=== PATIENT | female | born 1980 | race Two or more races ===

== ENCOUNTER 2022-09-04 13:11 | Outpatient (CLI) | payer OTHER | END 2022-09-04 13:13 | disposition home or self-care (01) | LOC: NUCLEAR 13:11 | PROVIDERS: ATTEND Internal Medicine Sports Medicine | DX: C73 Malignant neoplasm of thyroid gland (principal); E89.0 Postprocedural hypothyroidism ==

== ENCOUNTER 2022-09-08 10:32 | Outpatient (CLI) | payer OTHER | END 2022-09-08 10:36 | disposition home or self-care (01) | LOC: NUCLEAR 10:32 | PROVIDERS: ATTEND Internal Medicine Sports Medicine | DX: C73 Malignant neoplasm of thyroid gland (principal); E89.0 Postprocedural hypothyroidism | CPT/HCPCS: 78015; A9531 ==

== ENCOUNTER → 2023-09-14 10:05 | Outpatient (CLI) | payer OTHER | END | disposition home or self-care (01) | LOC: NUCLEAR 10:05 | PROVIDERS: ATTEND Internal Medicine Sports Medicine | DX: C73 Malignant neoplasm of thyroid gland (principal); E89.0 Postprocedural hypothyroidism ==

== ENCOUNTER 2025-01-09 06:19 | Day surgery (SDC) | payer OTHER ==
[2025-01-07 09:58] LABS: BASO % 0.7 % (0.1-1.2); EOS # 0.08 (0.04-0.54); EOS % 1.4 % (0.7-7.0); HEMATOCRIT 31.4 % (34.1-44.9); HEMOGLOBIN 9.7 g/dL (11.2-15.7); LYMPH # 2.21 (1.18-3.74); LYMPH % 37.4 % (19.3-53.1); MEAN CORPUSCULAR HEMOGLOBIN 23.3 pg (25.6-32.2); MONO # 0.39 (0.24-0.82); MONO % 6.6 % (4.7-12.5); NEUT # 3.16 (1.56-6.13); NEUT % 53.4 % (34.0-71.1); PLATELET COUNT 277 K/uL (163-369); RED BLOOD COUNT 4.17 M/uL (3.93-5.22); RED CELL DISTRIBUTION WIDTH 15.5 % (11.6-14.4)
[2025-01-07 09:59] LABS: PH,URINE 5.5 (5.0-8.0); URINE APPEARANCE Clear; URINE BACTERIA 298.6 uL (0.0-1933); URINE BILIRRUBIN Negative (NEGATIVE); URINE BLOOD Negative; URINE COLOR Yellow; URINE EPITHELIAL CELLS 14.8 uL (0.0-38.8); URINE GLUCOSE Negative (NEGATIVE); URINE KETONE Negative (NEGATIVE); URINE LEUKOCYTE Negative; URINE NITRATE Negative; URINE PROTEIN Negative (NEGATIVE); URINE UROBILINOGEN 0.2 E.U./dl; URINE WBC 7.9 uL (0.0-23.2)
[2025-01-07 10:28] LABS: PARTIAL THROMBOPLASTIN TIME 24.4 SECONDS (22.0-34.0); PROTHROMBIN TIME 10.9 SECONDS (9.0-11.5)
[2025-01-07 10:46] LABS: ALBUMIN 3.5 gm/dL (3.4-5.0); BILIRUBIN TOTAL 0.3 mg/dL (0.3-1.2); CALCIUM 8.8 mg/dL (8.5-10.1); CREATININE SERUM 0.69 mg/dL (0.55-1.02); GFR 91.59; GLOBULINA 3.8 G/DL (2.4-3.5); POTASSIUM 4.54 mEq/L (3.5-5.1); TOTAL PROTEIN 7.3 gm/dL (6.4-8.2)
[2025-01-07 13:35] VITALS: BP 120/79
[~2025-01-09] VITALS: Ht 160 cm; Wt 76.7 kg
[~2025-01-09 06:19] MED LIST: SYNTHROID125 MCG PO
[2025-01-09] MEDS ORDERED: CEFAZOLIN SODIUM 1,000 MG VIAL ONE (11:59)
== END 2025-01-09 17:30 | disposition home or self-care (01) ==
LOC: CIR.AMB 06:19
PROVIDERS: ATTEND Surgery
DX: D48.61 Neoplasm of uncertain behavior of right breast (principal); D24.1 Benign neoplasm of right breast; R92.1 Mammographic calcification found on diagnostic imaging of breast

== ENCOUNTER → 2025-01-13 | Emergency (ER) | payer OTHER ==
[~2025-01-13] VITALS: Ht 177.8 cm; Wt 74.8 kg
[~2025-01-13] MED LIST changes: +BUTALB/ACETAMINOPHEN/CAFFEINE 1 TAB TABLET PO ONE; +KETOROLAC TROMETHAMINE 60 MG VIAL IM ONE; +ORPHENADRINE CITRATE 30 MG/ML AMPUL IM ONE; +ORPHENADRINE CITRATE 30 MG/ML AMPUL ONE
== END | disposition home or self-care (01) ==
LOC: ER 13:00
DX: G44.209 Tension-type headache, unspecified, not intractable (principal)

== ENCOUNTER 2025-01-21 11:25 | Emergency (ER) | payer OTHER ==
[~2025-01-21] VITALS: Ht 160 cm; Wt 76.2 kg
[~2025-01-21 11:25] MED LIST changes: -BUTALB/ACETAMINOPHEN/CAFFEINE 1 TAB TABLET PO ONE; -KETOROLAC TROMETHAMINE 60 MG VIAL IM ONE; -ORPHENADRINE CITRATE 30 MG/ML AMPUL IM ONE; -ORPHENADRINE CITRATE 30 MG/ML AMPUL ONE
[2025-01-21] MEDS ORDERED: DIPHENHYDRAMINE HCL 50 MG/ML VIAL 1ML IM ONE (14:30)
[2025-01-21] MEDS ORDERED: FAMOTIDINE/PF 20 MG/2 ML VIAL IV ONE (14:30)
[2025-01-21] MEDS ORDERED: METHYLPREDNISOLONE SOD SUCC 125 MG VIAL IV ONE (14:30)
[2025-01-21 15:41] LABS: BASO % 0.4 % (0.1-1.2); EOS # 0.07 (0.04-0.54); EOS % 0.7 % (0.7-7.0); LYMPH # 2.65 (1.18-3.74); LYMPH % 28.3 % (19.3-53.1); MEAN PLATELET VOLUME 10.70 fl (9.4-12.4); MONO # 0.50 (0.24-0.82); MONO % 5.3 % (4.7-12.5); NEUT # 6.07 (1.56-6.13); NEUT % 64.8 % (34.0-71.1); RED CELL DISTRIBUTION WIDTH 15.8 % (11.6-14.4)
[2025-01-21] MEDS ORDERED: PEPCID AC20 MG PO (16:15)
[2025-01-21] MEDS ORDERED: BENADRYL ALLERG50 MG PO (16:15)
[2025-01-21] MEDS ORDERED: MEDROLPACK PO (16:15)
== END 2025-01-21 16:18 ==
LOC: ER 11:49
PROVIDERS: Preventive Medicine Public Health & General Preventive Medicine
DX: T78.49XA Other allergy, initial encounter (principal); X58.XXXA Exposure to other specified factors, initial encounter; L50.9 Urticaria, unspecified; Z85.850 Personal history of malignant neoplasm of thyroid